=== PATIENT | female | born 1965 | race Caucasian/White ===

== ENCOUNTER 2017-08-07 12:00 | Emergency (ER) | payer BC ==
[2017-08-07 13:12] LABS: #Basophils 0.1 thou/uL (0.0-0.2); #Eosinphils 0.2 thou/uL (0.0-0.7); #Lymphocytes 1.9 thou/uL (1.20-3.40); #Monocytes 0.4 thou/uL (0.11-0.59); #Neutrophils 5.5 thou/uL (1.40-6.50); %Basophils 0.8 % (0.0-1.0); %Lymphocytes 23.6 % (21.0-51.0); Hematocrit 39.8 % (36.0-47.0); Mean Platelet Volume 6.7 fL (7.4-10.4); Red Blood Cell (RBC) Count 4.41 mill/uL (4.20-5.40); White Blood Cell (WBC) Count 8.2 thou/uL (4.8-10.8)
[2017-08-07 13:19] LABS: ALT (SGPT) 11 U/L (8-55); AST (SGOT) 12 U/L (5-34); Alkaline Phosphatase 60 U/L (40-150); Anion Gap 11 mmol/L (10-20); BUN (Urea Nitrogen) 14 mg/dL (9.8-20.1); Bilirubin, Total 0.6 mg/dL (0.2-1.2); Calc. Creatinine Clearance 0 mL/min (70-130); Calcium 9.3 mg/dL (7.8-10.44); Carbon Dioxide 27 mmol/L (22-29); Chloride 107 mmol/L (98-107); Estimated GFR-MDRD 88; Globulin 2.7 g/dL (2.4-3.5); Protein, Total 6.6 g/dL (6.0-8.3)
[2017-08-07 13:21] LABS: Troponin I Less than 0.010 ng/mL (< 0.028)
--- NOTE | 2017-08-07 13:50 | RAD ---
PA AND LATERAL CHEST: HISTORY: Cough x2 weeks. FINDINGS: Heart size is within normal limits. The mediastinal structures appear unremarkable. The lungs are clear of infiltrates or arthritic changes of the spine. IMPRESSION: No active intrathoracic disease. POS: [facility]
--- NOTE | 2017-08-07 13:50 | RAD ---
RIGHT ANKLE THREE VIEWS: HISTORY: Ankle pain. Twisted ankle two days ago. FINDINGS: There are no signs of fracture, dislocation, or joint effusion. A small calcaneal spur at the inser tion of the plantar fascia is noted. IMPRESSION: No evidence of fracture. POS: [facility]
== END 2017-08-07 14:07 | disposition home or self-care (01) ==
LOC: SCSER 12:00
DX: J01.90 Acute sinusitis, unspecified (principal); I10 Essential (primary) hypertension; M32.9 Systemic lupus erythematosus, unspecified; F32.9 Major depressive disorder, single episode, unspecified; Z79.899 Other long term (current) drug therapy
CPT/HCPCS: 36415; 71020; 80053; 82553; 84484; 85025; 93005

== ENCOUNTER 2017-09-13 08:53 | Outpatient (CLI) | payer BC ==
--- NOTE | 2017-09-13 11:47 | MRI ---
LUMBAR SPINE MRI WITHOUT CONTRAST: Date: 09/13/17 HISTORY: Back pain with right-sided sciatica. Low back pain with right leg pain and numbness x2 months. Sympt oms are worsening. COMPARISON: 04/18/09. TECHNIQUE: Lumbar spine MRI is performed without contrast. Multisequential, multiplanar imaging is performed. FINDINGS: Appropriate T1 marrow signal intensity of the lumbar vertebra. Lumbar spine vertebral body height is maintained. No fracture. No significant STIR hyperintensity to suggest vertebral body edema or liga mentous injury. Symmetric signal intensity of psoas muscles. Appropriate signal intensity of visualized solid organs . Conus medullaris terminates at the mid L1 level. T12-L1: Adequate disc hydration. No significant central canal stenosis. Neural foramina are patent. L1-L2: Adequate disc hydration. No significant central canal stenosis. Neural foramina are patent. L2-L3: Adequate disc hydration. Minimal posterior element hypertrophy. No significant central canal stenosi s. Neural foramina are patent. L3-L4: Adequate disc hydration. No significant central canal stenosis. Neural foramina are patent. L4-L5: Generalized disc bulge with central disc protrusion. Narrowing of both subarticular zones, left grea ter than right. Partial obscuration of the traversing bilateral L5 nerve roots. Overall, mild centra l canal stenosis. Mild posterior element hypertrophy. Right neural foramen is patent. Minimal left f oraminal narrowing. L5-S1: Central disc bulge with right paracentral component. There is near complete obscuration of traversin g right S1 nerve root. No significant stenosis of the left subarticular zone. No significant stenosi s of the thecal sac. Mild bilateral foraminal narrowing. Note, there is a stable hemangioma involving the left aspect of the L5 vertebral body extending into the pedicle. Stable small hemangiomas at L2 and L4 are unchanged. IMPRESSION: Degenerative disease at L4-L5 and L5-S1 as detailed above. The right subarticular disc protrusion at L5-S1 has developed when compared to the prior examination. The degree of narrowing at L4-L5 has mi nimally progressed. POS: [facility]
== END 2017-09-13 08:54 | disposition home or self-care (01) ==
LOC: SCSMRI 08:53
PROVIDERS: ATTEND Physician Assistant
DX: M51.27 Other intervertebral disc displacement, lumbosacral region (principal); M51.37 Other intervertebral disc degeneration, lumbosacral region; M51.36 Other intervertebral disc degeneration, lumbar region
CPT/HCPCS: 72148

== ENCOUNTER 2017-10-24 14:21 | Outpatient (CLI) | payer BC | END 2017-10-24 14:22 | disposition home or self-care (01) | LOC: LABBT 14:21 | PROVIDERS: ATTEND Neurological Surgery | DX: Z01.818 Encounter for other preprocedural examination (principal); M51.16 Intervertebral disc disorders with radiculopathy, lumbar region ==

== ENCOUNTER → 2017-10-31 | Day surgery (SDC) | payer BC ==
[2017-10-24 14:54] VITALS: BMI 34.2
[~2017-10-31] MED LIST: Acetaminophen/Codeine 30-300mg Tablet ONE; Bupivacaine/Epinephrine 0.25% 30 ML VIAL ONE; CEFAZOLIN/Water 2 GM/20 ML SYRINGE ONE; Dexamethasone 20 MG/5 ML VIAL ONE; Fentanyl 100 MCG/2 ML VIAL ONE; Glycopyrrolate 0.2 MG/ML 5 ML SYRINGE ONE; Ketorolac Tromethamine 30 MG/ML VIAL ONE; Lidocaine 1% PF 5 ML VIAL ONE; Propofol 200 MG/20 ML VIAL ONE; Thrombin 5000 UNITS/5 ML VIAL ONE; ePHEDrine/0.9% NaCl/PF SYRINGE 50 mg/10 ml ONE
--- NOTE | 2017-10-31 08:59 | HP ---
HISTORY OF PRESENT ILLNESS: Ms. Frey is a very pleasant 51-year-old woman, who presents for evaluat ion of low back pain that radiates in an S1 fashion down the right lower extremity. She has treated this recently with PT, injections, and medications and feels that it is improving; however, it contin ues to annoy her significantly. She does complain of numbness over the same distribution, but only f rom the knee down. She is visibly distressed when we talked about her pains in clinic. MRI from [facility] reveals 2 separate disk herniations at L4-L5 with L5 impacting the right S1 nerve root, which I believe matches her symptoms. PAST MEDICAL HISTORY: Low back pain, lupus, and kidney stones. CURRENT MEDICATIONS: Lyrica, tramadol, and unspecified hypertension medication. ALLERGIES: She is allergic to SULFA. PAST SURGICAL HISTORY: Laparoscopy and lithotripsy. PHYSICAL EXAMINATION: NEUROLOGIC: Patient is alert and oriented x3. Gait is normal. EXTREMITIES: No ataxia. Lower extremity motor exam is normal. She does have a positive right strai ght leg raise. ASSESSMENT: Lumbar radiculopathy and lumbar herniated disk. PLAN: Dr. Willis met with the patient, reviewed imaging and ultimately advocated for a right L5 diske ctomy. He explained to the patient the risks, benefits, and alternatives to the procedure. The kvng ent expressed understanding and would like to move forward with surgery as discussed. I do believe t he patient is mentally competent and capable of making medical decisions for herself and we will move forward with surgery as planned. Damien Johnson PA-C dictating for Dr. Willis.
--- NOTE | 2017-10-31 14:33 | PRG ---
DATE OF SERVICE: 10/31/2017 Ms. Frey is a 51-year-old female evaluated in the outpatient setting by my PA, Jonas Johnson, for righ t lower extremity pain and numbness. She had an MRI scan, which revealed 2 disk protuberances, one a t L4 and more pronounced, one at L5 that effaces the right descending S1 nerve root. I talked with mai poole on the phone before they met with her in person this morning to again review her symptoms, her humaira gnosis, her imaging, and the planned surgical procedure, which will be that of the right L5 diskectom y. She continues to have clinical symptoms which are consistent with a right S1 radiculopathy. Her symptoms are now more pronounced numbness than they are pain. I reviewed with her all the risks, altagracia efits and alternatives of the surgical procedure, and she provided informed consent.
--- NOTE | 2017-11-01 13:22 | OP ---
DATE OF PROCEDURE: 10/31/2017 SURGEON: Ash Willis M.D. SAW RUNNER: Damien Johnson PA-C INDICATION: Pain. DIAGNOSIS: Lumbar radiculopathy. PROCEDURE: Right L5 discectomy. ANESTHESIA: General. TECHNIQUE: The patient was brought into the operating room and placed under general anesthesia. She was flipped from a supine to a prone position on the operating room table. A linear incision was pl anned over the L5-S1 segment. After prepping and draping and after an appropriate operative pause, t he incision was created. The soft tissues were swept right of midline. A self-retaining retractor w as placed in the wound for optimal exposure. After confirming the appropriate location, a high-speed cutting drill bit as well as 2, 3 and 4 mm Kerrisons were used to remove the lamina along the inferi or aspect of L5 on the right and superior aspect of S1 on the right. After identifying the descendin g S1 nerve roots, it was mobilized medially with a nerve root retractor. A self-retaining retractor was placed in the wound for optimal exposure. An annulotomy was performed in the L5 disc material an d disk material was removed until the lateral recesses and the descending S1 nerve root were well dec ompressed. The wound was irrigated. Hemostasis was maintained throughout. The wound was then close d in anatomic layers and a pressure dressing was applied. There were no known procedural complicatio ns.
== END ==
LOC: SDC 12:09
PROVIDERS: ATTEND Neurological Surgery
PROC: 01NB0ZZ Release Lumbar Nerve, Open Approach (ICD-10-PCS; principal; 2017-10-31)
DX: M54.16 Radiculopathy, lumbar region (principal); M32.9 Systemic lupus erythematosus, unspecified; Z88.2 Allergy status to sulfonamides; Z98.890 Other specified postprocedural states
CPT/HCPCS: 76001; 96374; J1100; J1885; J2001; J2704; J3010

== ENCOUNTER 2018-07-10 15:30 | Outpatient (CLI) | payer BC | END 2018-07-10 15:31 | disposition home or self-care (01) | LOC: BICMAMMO 15:30 | PROVIDERS: ATTEND Family Medicine | DX: Z12.31 Encounter for screening mammogram for malignant neoplasm of breast (principal); Z80.3 Family history of malignant neoplasm of breast | CPT/HCPCS: 77063; 77067 ==

== ENCOUNTER 2019-12-02 10:06 | Outpatient (CLI) | payer BC ==
--- NOTE | 2019-12-02 10:39 | MMO ---
Bilateral MAMMO Bilat Screen [facility]. CLINICAL HISTORY: Patient is 54 years old and is seen for screening. The patient has the following family history of breast cancer: mother, malignant (generic). The patient has no personal history of cancer. The patient has a history of left Ultrasound Guided Core Biopsy in February, - fibroadenoma. VIEWS: The views performed were: bilateral craniocaudal with tomosynthesis and bilateral mediolateral oblique with tomosynthesis. FILMS COMPARED: The present examination has been compared to prior imaging studies performed at [facility] on 09/23/2015, 09/26/2015, 02/04/2017 and 07/10/2018. This study has been interpreted with the assistance of computer-aided detection. MAMMOGRAM FINDINGS: The breasts are heterogeneously dense, which could obscure a lesion on mammography. Finding 1: There are stable benign appearing calcifications seen in both breasts. Finding 2: There are multiple stable round masses with circumscribed margins seen in both breasts. There are no suspicious masses, suspicious calcifications, or new areas of architectural distortion. IMPRESSION: THERE IS NO MAMMOGRAPHIC EVIDENCE OF MALIGNANCY. A ROUTINE FOLLOW-UP MAMMOGRAM IN 1 YEAR IS RECOMMENDED. THE RESULTS OF THIS EXAM WERE SENT TO THE PATIENT. ACR BI-RADS Category 2 - Benign finding MAMMOGRAPHY NOTE: 1. A negative mammogram report should not delay a biopsy if a dominant of clinically suspicious mass is present. 2. Approximately 10% to 15% of breast cancers are not detected by mammography. 3. Adenosis and dense breasts may obscure an underlying neoplasm. Reported by: SALLY GONZALEZ MD Electonically Signed: [id number]
== END 2019-12-02 10:07 | disposition home or self-care (01) ==
LOC: BICMAMMO 10:06
PROVIDERS: ATTEND Physician Assistant
DX: Z12.31 Encounter for screening mammogram for malignant neoplasm of breast (principal); Z80.3 Family history of malignant neoplasm of breast; Z91.89 Other specified personal risk factors, not elsewhere classified; Z86.018 Personal history of other benign neoplasm
CPT/HCPCS: 77063; 77067

== ENCOUNTER 2021-04-11 10:41 | Outpatient (CLI) | payer BC | END 2021-04-11 10:42 | disposition home or self-care (01) | LOC: SCSRAD 10:41 | PROVIDERS: ATTEND Internal Medicine Rheumatology | DX: M25.50 Pain in unspecified joint (principal); M70.61 Trochanteric bursitis, right hip; M70.62 Trochanteric bursitis, left hip | CPT/HCPCS: 73565 ==

== ENCOUNTER 2021-04-17 09:52 | Outpatient (CLI) | payer BC | END 2021-04-17 09:53 | disposition home or self-care (01) | LOC: SCSRAD 09:52 | PROVIDERS: ATTEND Internal Medicine Rheumatology | DX: M70.61 Trochanteric bursitis, right hip (principal); M70.62 Trochanteric bursitis, left hip; M16.0 Bilateral primary osteoarthritis of hip | CPT/HCPCS: 72170 ==

== ENCOUNTER 2022-10-31 07:54 | Outpatient (CLI) | payer BC | END 2022-10-31 07:55 | disposition home or self-care (01) | LOC: BICMAMMO 07:54 | PROVIDERS: ATTEND Family Medicine | DX: Z12.31 Encounter for screening mammogram for malignant neoplasm of breast (principal); Z80.3 Family history of malignant neoplasm of breast | CPT/HCPCS: 77063; 77067 ==

== ENCOUNTER 2024-05-28 13:07 | Outpatient (CLI) | payer BC | END 2024-05-28 13:08 | disposition home or self-care (01) | LOC: BICMAMMO 13:07 | PROVIDERS: ATTEND Family Medicine | DX: Z12.31 Encounter for screening mammogram for malignant neoplasm of breast (principal); Z80.3 Family history of malignant neoplasm of breast; Z91.89 Other specified personal risk factors, not elsewhere classified | CPT/HCPCS: 77063; 77067 ==